=== PATIENT | male | born 1965 | race Caucasian/White ===

== ENCOUNTER → 2018-05-20 | Day surgery (SDC) | payer OTHER ==
[~2018-05-20] MED LIST: ASPIR 8181 MG PO; FENTANYL CITRATE/PF 100MCG/2 ML INJ ONE; MIDAZOLAM HCL 5 MG/ML VIAL ONE; MULTI-VITAMIN1 EACH PO; PROPOFOL IV EMULSION 10 MG/ML 50 ML VIAL ONE
--- NOTE | 2018-05-20 17:45 | Operative Report ---
DATE OF PROCEDURE: May 20, 2018 REFERRING PHYSICIAN: Dr. Rachael Bradley. PROCEDURE PERFORMED: Colonoscopy and polypectomy. INDICATIONS FOR COLONOSCOPY: Surveillance colonoscopy, patient with history of colon cancer. MEDICATION: Patient was done under MAC. Please see anesthesiologist's note. PROCEDURE: With the patient in left lateral decubitus position, a flexible fiberoptic Olympus colonoscope was inserted into the rectum with ease and advanced all the way to the cecum. It was then withdrawn slowly. Mucosa overlying the cecum, ascending colon, transverse colon, and descending colon appeared to be within normal limits. Anastomosis was noted at approximately 30 cm from the anal verge. There was a minute nodule anastomosis that was biopsied. One polyp was hot biopsied from the sigmoid colon, one polyp was hot biopsied from the rectum. The scope was then retroflexed into the distal rectum and small internal hemorrhoids were noted, none of which was actively bleeding. The scope was then straightened out and was subsequently withdrawn. Patient tolerated the procedure well. IMPRESSION 1. Anastomosis at 30 cm from the anal verge intact. 2. Approximately 5 mm nodule anastomosis, biopsied. 3. Sigmoid colon polyp, hot biopsied. 4. Rectal polyp, hot biopsied. 5. Internal hemorrhoids, none actively bleeding. PLAN: Follow up histology. Initiate high-fiber low-fat diet. Initiate high-fiber supplement. Patient might benefit from a followup colonoscopy in 3 years. Job#: [id number] GUST[place] cc:MD RACHAEL TRAORE MD
--- OUTSIDE RECORDS SUMMARY | 2018-05-22 09:41 | XMS REPORT ---
Author Author [facility] Address Unknown Phone Unavailable Care Team Providers [facility] Hand Name Role Phone ELANA SAINZ Unavailable Unavailable Problems This patient has no known problems. Allergies, Adverse Reactions, Alerts This patient has no known allergies or adverse reactions. Medications This patient has no known medications. Results Test Description Test Time Test Comments Text Results Atomic Results Result Comments Culture, Strep Group A Rflx 2017-05-30 08:46:00 Culture, Strep Group A Rflx (test code=STRPACULT) STRPCULT Culture, Strep Group A Rflx (test code=STRPACULT1) N Influenza A B Ag [id number] 08:48:00* Test Item Value Reference Range Comments Influenza A B Ag Screen (test code=FLU) The rapid Flu A B test can distinguish between influenza A Influenza A B Ag Screen (test code=FLU1) follow up confirmatory testing is warranted. Influenza A B Ag Screen (test code=FLU1) FLUB Influenza A B Ag Screen (test code=FLU1) P * This is an EDITED result. * A prior result that was reported as final has been changed. * This is an EDITED result. * A prior result that was reported as final has been changed. Strep Group A [id number] 08:38:00* Test Item Value Reference Range Comments Strep Group A Screen (test code=STRP) STRPANEG1 Strep Group A Screen (test code=STRP1) N Strep Group A Screen (test code=STRP1) STRPTH
== END | disposition home or self-care (01) ==
LOC: OR 11:04
PROVIDERS: ATTEND Internal Medicine Gastroenterology
DX: Z08 Encounter for follow-up examination after completed treatment for malignant neoplasm (principal); K63.5 Polyp of colon; K62.1 Rectal polyp; Z98.0 Intestinal bypass and anastomosis status; K64.8 Other hemorrhoids; Z85.038 Personal history of other malignant neoplasm of large intestine; R03.0 Elevated blood-pressure reading, without diagnosis of hypertension; Z88.1 Allergy status to other antibiotic agents; Z88.3 Allergy status to other anti-infective agents; Z01.810 Encounter for preprocedural cardiovascular examination; Z79.82 Long term (current) use of aspirin; Z68.42 Body mass index [BMI] 45.0-49.9, adult
CPT/HCPCS: 45380; 45384; 93005; J2250; J2704; 45378